=== PATIENT | male | born 1960 | race Caucasian/White ===

== ENCOUNTER → 2016-06-28 | Outpatient (CLI) | payer BC ==
[~2016-06-28] MED LIST: ASPEC81 PO; FAMO20TA11 PO; ZCRUNK
--- NOTE | 2016-06-28 08:43 | DIAGNOSTIC IMAGING REPORT ---
LEFT SHOULDER 4 VIEWS CLINICAL HISTORY: Left shoulder pain. FINDINGS: 4 views of the left shoulder are compared to study dated 05/08/2008. The skeletal structures are well mineralized. No fracture or dislocation is seen. Mild productive change is seen at the acromioclavicular joint. The glenohumeral articulation is preserved. The overlying soft tissues are within normal limits. The imaged left upper lobe lung parenchyma appears clear. IMPRESSION: No acute bony abnormality is seen in the left shoulder. Electronically signed by: Tarun Blunt M.D. 06/28/2016 8:42 AM Dictated Date/Time: 06/28/2016 8:40 AM
== END | disposition home or self-care (01) ==
LOC: C.RDSM 11:27
PROVIDERS: ATTEND Physician Assistant
DX: M25.512 Pain in left shoulder (principal)

== ENCOUNTER → 2017-03-24 | Day surgery (SDC) | payer BC ==
[2017-03-20 07:49] VITALS: Ht 177.8 cm; Wt 88.6 kg
[~2017-03-24] VITALS: Ht 177.8 cm; Wt 88.6 kg
[~2017-03-24] MED LIST changes: -ASPEC81 PO; +ASPI81TA28 PO; -FAMO20TA11 PO; +LIDOCAINE HCL 2% 2 ML VIAL (20MG/ML) ONE; +MIDAZOLAM HCL 1 MG/ML 2ML VIAL ONE; +OMEP20CA9 PO; +PROPOFOL IV EMULSION 10 MG/ML 20 ML VIAL IV ONE; +SIMV20TA2 PO; +SODIUM CHLORIDE 0.9% 500ML 500 ML IV ONE; -ZCRUNK
--- NOTE | 2017-03-24 09:54 | Endo History and Physical ---
History & Physical Date of Service: Mar 24, 2017. Chief Complaint: Screening Referring Physician: Steven Santiago History of Present Illness 56 yo CM who presents for screening colonoscopy. Past Surgical History Hx Cardiac Surgery: No Hx Internal Defibrillator: No Hx Pacemaker: No Hx Abdominal Surgery: No Hx of Implantable Prosthesis: No Hx Post-Op Nausea and Vomiting: No Hx Cancer Surgery: No Hx Thoracic Surgery: No Hx Orthopedic: Yes (RT KNEE SCOPE) Hx Urinary Tract Surgery: No Family History None Social History Smoking Status: Never Smoker Hx Substance Use: No Hx Alcohol Use: Yes (OCCASIONAL) Allergies Coded Allergies: No Known Allergies (Unverified , 03/20/17) Current Medications Reported Home Medications Medications Dose Route/Sig Max Daily Dose Days Date Category Aspirin Ec (Aspirin) 81 Mg Tab 81 Mg PO DAILY 03/20/17 Reported Prilosec (Omeprazole) 20 Mg Cap 20 Mg PO Q2D 03/20/17 Reported Zocor (Simvastatin) 20 Mg Tab 20 Mg PO QAM 03/20/17 Reported Vital Signs Weight (Kilograms): 88.64 Height (Feet): 5 Height (Inches): 10 Date Time Temp Pulse Resp B/P (MAP) Pulse Ox O2 Delivery O2 Flow Rate FiO2 03/24/17 09:01 36.6 55 16 126/78 (94) 96 Room Air Physical Exam General Appearance: WD/WN, no apparent distress Respiratory/Chest: Auscultation: breath sounds normal Cardiovascular: Heart Auscultation: RRR Abdomen: Bowel Sounds: normal Inspection & Palpation: soft, non-distended, no tenderness, guarding & rebound Assessment and Plan Assessment: 56 yo CM who presents for screening colonoscopy. Plan: Proceed with colonoscopy.
--- NOTE | 2017-03-24 10:55 | GI REPORT ---
Procedure Date: 03/24/2017 9:38 AM Procedure: Colonoscopy Indications: Screening for colorectal malignant neoplasm Medicines: Monitored Anesthesia Care Complications: No immediate complications. Estimated Blood Loss: Estimated blood loss: none. Procedure: Pre-Anesthesia Assessment: - Prior to the procedure, a History and Physical was performed, and patient medications and allergies were reviewed. The patient's tolerance of previous anesthesia was also reviewed. The risks and benefits of the procedure and the sedation options and risks were discussed with the patient. All questions were answered, and informed consent was obtained. Prior Anticoagulants: The patient has taken aspirin, last dose was 1 day prior to procedure. ASA Grade Assessment: II - A patient with mild systemic disease. After reviewing the risks and benefits, the patient was deemed in satisfactory condition to undergo the procedure. After I obtained informed consent, the scope was passed under direct vision. Throughout the procedure, the patient's blood pressure, pulse, and oxygen saturations were monitored continuously. The scope was introduced through the anus and advanced to the terminal ileum. The colonoscopy was performed without difficulty. The patient tolerated the procedure well. The quality of the bowel preparation was good. The terminal ileum, ileocecal valve, appendiceal orifice, and rectum were photographed. Findings: The perianal and digital rectal examinations were normal. Non-bleeding internal hemorrhoids were found during retroflexion. The hemorrhoids were small. The exam was otherwise without abnormality. Impression: - Non-bleeding internal hemorrhoids. - The examination was otherwise normal. - No specimens collected. Recommendation: - Resume previous diet. - Continue present medications. - Repeat colonoscopy in 10 years for surveillance. - Return to primary care physician as previously scheduled. Aneudy Horne DO 03/24/2017 10:34:57 AM This report has been signed electronically. Note Initiated On: 03/24/2017 9:38 AM I attest to the content of the Intraoperative Record and orders documented therein, exceptions below
--- NOTE | 2017-03-24 11:00 | Anesthesiology Progress Note ---
Anesthesia Post Op Note Date & Time Mar 24, 2017 at 11:00 Vital Signs Pain Intensity: 0 Vital Signs Past 12 Hours Date Time Temp Pulse Resp B/P (MAP) Pulse Ox O2 Delivery O2 Flow Rate FiO2 03/24/17 10:43 51 18 123/64 (83) 98 Room Air 03/24/17 10:28 52 16 111/72 (85) 98 Room Air 03/24/17 09:01 36.6 55 16 126/78 (94) 96 Room Air Notes Mental Status: alert / awake / arousable, participated in evaluation Pt Amnestic to Procedure: Yes Nausea / Vomiting: adequately controlled Pain: adequately controlled Airway Patency, RR, SpO2: stable & adequate BP & HR: stable & adequate Hydration State: stable & adequate Anesthetic Complications: no major complications apparent
--- NOTE | 2017-03-24 11:02 | Discharge Instructions ---
Endoscopy Patient Instructions Date / Procedure(s) Performed Mar 24, 2017. Colonoscopy Allergy Information Coded Allergies: No Known Allergies (Unverified , 03/20/17) Discharge Date / Findings Mar 24, 2017. Internal hemorrhoids Medication Instructions OK to resume all medications today as prescribed Reported Home Medications Medications Dose Route/Sig Max Daily Dose Days Date Category Aspirin Ec (Aspirin) 81 Mg Tab 81 Mg PO DAILY 03/20/17 Reported Prilosec (Omeprazole) 20 Mg Cap 20 Mg PO Q2D 03/20/17 Reported Zocor (Simvastatin) 20 Mg Tab 20 Mg PO QAM 03/20/17 Reported Provider Instructions Activity Restrictions - No exercising or heavy lifting for 24 hours. - Do not drink alcohol the day of the procedure. - Do not drive a car or operate machinery until the day after the procedure. - Do not make any important decisions or sign important papers in 24 hours after the procedure. Following Day: - Return to full activity which may include returning to work/school. Diet Start your diet with liquids and light foods (jello, soup, juice, toast). Then eat your usual diet if not nauseated. Treatment For Common After Affects For mild abdominal pain, bloating, or excessive gas: - Rest - Eat lightly - Lie on right side Follow-Up Information Follow-up with Stveen Santiago as scheduled Anesthesia Information What You Should Know You have had a procedure that required some medicine to reduce anxiety and discomfort. This treatment is called moderate sedation. After receiving the treatment, you may be sleepy, but you will be able to breathe on your own. The effects of the treatment may last for several hours. Follow these instructions along with Activity/Diet recommendations noted above: * Do NOT do anything where dizziness or clumsiness would be dangerous. * Rest quietly at home today, then you can be up and about tomorrow. * Have a responsible person stay with you the rest of today. * You may have had an I.V. today. If so, you may take the dressing off later today. Recommendations Call your doctor if: * Trouble breathing * Continuous vomiting for more than 24 hours * Temperature above 101 degrees * Severe abdominal pain or bloating * Pain not relieved by pain medicine ordered * There is increased drainage or redness from any incision * A large amount of rectal bleeding greater than 2-3 tablespoons. (If you had a polyp/s removed or have hemorrhoids, a small amount of blood - from the rectum is to be expected.) * You have any unanswered questions or concerns. IN THE EVENT OF A SERIOUS EMERGENCY, GO TO THE NEAREST EMERGENCY ROOM Your discharge instructions were prepared by provider Aneudy Horne. Patient Instructions Signature Page Lee Sutton Patient (or Guardian) Signature/Date: I have read and understand the instructions given to me by my caregivers. Caregiver/RN/Doctor Signature/Date: The above-named patient and/or guardian has received patient instructions on this date. + Original Patient Signature Page (only) stays with chart. Please make copy for patient.
[2017-03-24 11:05] VITALS: BP 136/72; PULSE 51; O2SAT 98
== END | disposition home or self-care (01) ==
LOC: C.GI 08:42
PROVIDERS: ATTEND Internal Medicine
DX: Z12.11 Encounter for screening for malignant neoplasm of colon (principal); K64.8 Other hemorrhoids; Z79.82 Long term (current) use of aspirin; Z79.899 Other long term (current) drug therapy; K21.9 Gastro-esophageal reflux disease without esophagitis; M19.90 Unspecified osteoarthritis, unspecified site

== ENCOUNTER 2023-10-17 06:18 | Observation (INO) ==
--- NOTE | 2023-09-07 10:10 | PAT Medication Instructions ---
Medication Instructions Date of Service September 07, 2023 Home Medications Medication Instructions Recorded turmeric root extract 500 mg 1,000 mg (2 x 500 mg) PO DAILY #30 07/27/21 capsule caps triamcinolone acetonide 0.1 % 1 applic topical BID #30 grams 08/03/22 topical cream simvastatin 40 mg tablet 40 mg PO DAILY #90 tabs 01/30/23 hydrocortisone 2.5 % topical cream 1 applic SC DAILY PRN hemorrhoids 07/24/23 with perineal applicator #30 grams (Anusol-HC) methocarbamol 500 mg tablet 500 mg PO Q8H PRN muscle pain #14 08/25/23 tabs Medication List: glucosamine sulf dipot chlr,msm,chond 550 mg-C 30 mg-kathy 1 mg capsule (Glucosamine Chondroitin) 1 cap PO BID turmeric root extract 500 mg capsule 1,000 mg (2 x 500 mg) PO DAILY triamcinolone acetonide 0.1 % topical cream 1 applic topical BID simvastatin 40 mg tablet 40 mg PO DAILY ascorbate calcium (vitamin C) 1 tab PO Q2D cholecalciferol (vitamin D3) 125 mcg (5,000 unit) capsule 125 mcg PO DAILY hydrocortisone 2.5 % topical cream with perineal applicator (Anusol-HC) 1 applic SC DAILY PRN hemorrhoids mecobalamin (vitamin B12) 500 mcg chewable tablet 500 mcg PO DAILY pantoprazole 40 mg tablet,delayed release 40 mg PO DAILY PRN Acid Reflux zinc acetate 50 mg (zinc) capsule 50 mg PO Q2D methocarbamol 500 mg tablet 500 mg PO Q8H PRN muscle pain MEDICATION INSTRUCTIONS: Continue as directed triamcinolone acetonide 0.1 % topical cream 1 applic topical BID (do not use near surgical area after bathing prior to surgery) hydrocortisone 2.5 % topical cream with perineal applicator (Anusol-HC) 1 applic SC DAILY PRN hemorrhoids STOP taking 2 weeks before surgery glucosamine sulf dipot chlr,msm,chond 550 mg-C 30 mg-kathy 1 mg capsule (Glucosamine Chondroitin) 1 cap PO BID turmeric root extract 500 mg capsule 1,000 mg (2 x 500 mg) PO DAILY DO NOT take the morning of surgery zinc acetate 50 mg (zinc) capsule 50 mg PO Q2D ascorbate calcium (vitamin C) 1 tab PO Q2D cholecalciferol (vitamin D3) 125 mcg (5,000 unit) capsule 125 mcg PO DAILY mecobalamin (vitamin B12) 500 mcg chewable tablet 500 mcg PO DAILY Take morning of surgery With a small sip of water, OTHERWISE NOTHING TO EAT OR DRINK AFTER MIDNIGHT: simvastatin 40 mg tablet 40 mg PO DAILY pantoprazole 40 mg tablet,delayed release 40 mg PO DAILY PRN Acid Reflux methocarbamol 500 mg tablet 500 mg PO Q8H PRN muscle pain Take evening before surgery methocarbamol 500 mg tablet 500 mg PO Q8H PRN muscle pain Other Notes If you have any questions please call us at [phone] or [phone] or [phone] or [phone]
--- NOTE | 2023-09-18 11:51 | Anesthesiology Consultation ---
Date of Service September 18, 2023 History Surgery Operation Date: 10/17/23 07:00 Proposed Procedures p Left Unicompartmental Knee versus - Kenneth Rodriguez MD s Left Total Knee Arthroplasty - Kenneth Rodriguez MD Height/Weight Height: 5 ft 10 in Weight: 90.718 kg Allergies Allergy/AdvReac Type Severity Reaction Status Date / Time No Known Allergies Allergy Verified 08/30/23 13:32 Medications Home Medications Medication Instructions Recorded Confirmed Last Taken glucosamine sulf dipot 1 cap PO BID 11/21/18 08/30/23 11/21/18 chlr,msm,chond 550 mg-C 30 mg-kathy 1 mg capsule (Glucosamine Chondroitin) turmeric root extract 500 mg 1,000 mg (2 x 500 mg) PO DAILY #30 07/27/21 08/30/23 Unknown capsule caps triamcinolone acetonide 0.1 % 1 applic topical BID #30 grams 08/03/22 08/30/23 Unknown topical cream simvastatin 40 mg tablet 40 mg PO DAILY #90 tabs 01/30/23 08/30/23 Unknown ascorbate calcium (vitamin C) 1 tab PO Q2D 07/24/23 08/30/23 Unknown cholecalciferol (vitamin D3) 125 125 mcg PO DAILY 07/24/23 08/30/23 Unknown mcg (5,000 unit) capsule hydrocortisone 2.5 % topical cream 1 applic IN DAILY PRN hemorrhoids 07/24/23 08/30/23 Unknown with perineal applicator #30 grams (Anusol-HC) mecobalamin (vitamin B12) 500 mcg 500 mcg PO DAILY 07/24/23 08/30/23 Unknown chewable tablet pantoprazole 40 mg tablet,delayed 40 mg PO DAILY PRN Acid Reflux 07/24/23 08/30/23 Unknown release zinc acetate 50 mg (zinc) capsule 50 mg PO Q2D 07/24/23 08/30/23 Unknown methocarbamol 500 mg tablet 500 mg PO Q8H PRN muscle pain #14 08/25/23 08/30/23 Unknown tabs Wheeled Walker #1 ea 09/18/23 09/18/23 Unknown Past Medical History Medical History GERD (gastroesophageal reflux disease) Medial meniscus tear Left knee DJD Insomnia Mitral valve regurgitation Prediabetes Anxiety History of stress fracture Internal hemorrhoids Hyperlipidemia Past Family History Family History Brother Carotid artery stenosis Coronary arteriosclerosis Myocardial infarction Father Carotid artery stenosis Lung cancer Coronary arteriosclerosis Sister Hyperlipidemia Mother Stroke Denies family history of Ovarian cancer Prostate cancer Breast cancer Colorectal cancer Past Surgical History Surgical History History of colonoscopy S/P tonsillectomy S/P arthroscopy of right knee Social History Smoking Status: Never smoker Do You Dip or Chew Tobacco: No Hx Alcohol Use: Yes (2 drinks about 2-3 times a week) Alcohol type: beer and hard liquor Hx Substance Use: No substance use type: does not use Review of Systems Patient denies chest pain, shortness of breath, dyspnea on exertion, fever, chills, cough, wheezing, palpitations.
--- NOTE | 2023-09-18 11:54 | Anesthesiology Consultation ---
Date of Service September 18, 2023 Assessment & Plan (1) Pre-op evaluation: - Outpatient joint assessment: Patient is currently scheduled for inpatient pathway. If re-evaluated and patient/surgeon requests outpatient pathway, patient is acceptable candidate for outpatient joint program from anesthesia standpoint pending surgeon's office assessment of pt motivation/support/completion of same day joint program preop requirements. Chart Review Chart Review: Acceptable Risk for Surgery and Patient seen in Pre Admission Testing Teaching & Discussion Pre-Anesthesia Teaching/Discussion Notes: Instructed NPO after midnight before surgery, except medications with 15 cc of water. Medication instructions provided according to the PAT guidelines. History Surgery Operation Date: 10/17/23 07:00 Proposed Procedures p Left Unicompartmental Knee versus - Kenneth Rodriguez MD s Left Total Knee Arthroplasty - Kenneth Rodriguez MD Height/Weight Height: 5 ft 10 in Weight: 93.6 kg Allergies Allergy/AdvReac Type Severity Reaction Status Date / Time No Known Allergies Allergy Verified 08/30/23 13:32 Medications Home Medications Medication Instructions Recorded Confirmed Last Taken glucosamine sulf dipot 1 cap PO BID 11/21/18 08/30/23 11/21/18 chlr,msm,chond 550 mg-C 30 mg-kathy 1 mg capsule (Glucosamine Chondroitin) turmeric root extract 500 mg 1,000 mg (2 x 500 mg) PO DAILY #30 07/27/21 08/30/23 Unknown capsule caps triamcinolone acetonide 0.1 % 1 applic topical BID #30 grams 08/03/22 08/30/23 Unknown topical cream simvastatin 40 mg tablet 40 mg PO DAILY #90 tabs 01/30/23 08/30/23 Unknown ascorbate calcium (vitamin C) 1 tab PO Q2D 07/24/23 08/30/23 Unknown cholecalciferol (vitamin D3) 125 125 mcg PO DAILY 07/24/23 08/30/23 Unknown mcg (5,000 unit) capsule hydrocortisone 2.5 % topical cream 1 applic AL DAILY PRN hemorrhoids 07/24/23 08/30/23 Unknown with perineal applicator #30 grams (Anusol-HC) mecobalamin (vitamin B12) 500 mcg 500 mcg PO DAILY 07/24/23 08/30/23 Unknown chewable tablet pantoprazole 40 mg tablet,delayed 40 mg PO DAILY PRN Acid Reflux 07/24/23 08/30/23 Unknown release zinc acetate 50 mg (zinc) capsule 50 mg PO Q2D 07/24/23 08/30/23 Unknown methocarbamol 500 mg tablet 500 mg PO Q8H PRN muscle pain #14 08/25/23 08/30/23 Unknown tabs Wheeled Walker #1 ea 09/18/23 09/18/23 Unknown Past Medical History Medical History Anxiety GERD (gastroesophageal reflux disease) controlled, stable per pt History of stress fracture (~2015) left foot Hyperlipidemia Internal hemorrhoids Hx Left knee DJD Medial meniscus tear Mitral valve regurgitation Stress echo 07/2023: Mild to moderate MR Prediabetes "borderline" Patient denies h/o stroke, seizures, heart attack, heart failure, HTN, blood clots/DVTs or blood transfusions. Exercise / Class Metabolic Activity II 4-5 Yardwork/Stairs/Walk up hill (denies chest discomfort or shortness of breath with one flight of stairs) Past Family History Family History Brother Carotid artery stenosis Coronary arteriosclerosis Myocardial infarction Father Carotid artery stenosis Lung cancer Coronary arteriosclerosis Sister Hyperlipidemia Mother Stroke Denies family history of Ovarian cancer Prostate cancer Breast cancer Colorectal cancer Past Surgical History Surgical History History of colonoscopy S/P arthroscopy of right knee S/P tonsillectomy Past Anesthesia History No Hx of Anesthesia Complications and No Family Hx of Anesthesia Complications History of PONV No Hx of PONV and No Hx of Motion Sickness Social History Smoking Status: Never smoker Do You Dip or Chew Tobacco: No Hx Alcohol Use: Yes (2 drinks about 2-3 times a week) Alcohol type: beer and hard liquor Hx Substance Use: No substance use type: does not use Review of Systems Snoring, denies witnessed apneas. Patient denies chest pain, shortness of breath, dyspnea on exertion, fever, chills, cough, wheezing, or palpitations. Physical Exam Vital Signs Vitals BP 130/69 P 50 TEMP 97.8 SP02 96% on RA RESP 17 Physical Patient resting comfortably in chair in no acute distress, alert and oriented, responding appropriately throughout visit Full cervical extension range of motion without pain TMD 3.5 finger breadths Mallampati Score 2 Dentition: several crowns, denies chipped or loose teeth, implants or bridges Lungs: normal respiratory effort. Good air movement, clear throughout to auscultation, no adventitious breath sounds Cardiac: regular rate and rhythm, no murmurs noted Carotid arteries: negative bruit bilat Lab Results Anesthesia Preop Results Results Anesthesia Widget: WBC 4.44 K/ul (4.8-10.8) L 08/25/23 Hgb 15.9 g/dl (14.0-18.0) 08/25/23 Hct 45.6 % (42.0-52.0) 08/25/23 Plt 211 K/uL (130-400) 08/25/23 Na 138 mmol/L (136-145) 08/25/23 K 4.5 mmol/L (3.5-5.1) 08/25/23 Cl 106 mmol/L (98-107) 08/25/23 CO2 24 mmol/L (21-32) 08/25/23 BUN 20 mg/dl (6-23) 08/25/23 Creat 1.03 mg/dl (0.6-1.4) 08/25/23 Glucose Level 111 mg/dl (70-99(Fasting)) H 08/25/23 PT 10.9 Seconds (9.0-12.0) 09/18/23 PTT 31 Seconds (21-31) 09/18/23 INR 1.0 (0.9-1.1) 09/18/23 TSH 2.283 uIu/ml (0.300-4.500) 08/07/23 HA1c 5.9 % (4.5-5.6) H 08/07/23 Urine Color Yellow 08/25/23 Urine Appearance Clear (Clear) 08/25/23 Urine pH 5.5 (4.5-7.5) 08/25/23 Urine Specific Warner 1.019 (1.000-1.030) 08/25/23 Urine Protein Negative (Negative) 08/25/23 Urine Glucose (UA) Negative (Negative) 08/25/23 Urine Ketones Negative (Negative) 08/25/23 Urine Blood Negative (Negative) 08/25/23 Urine Nitrite Negative (Negative) 08/25/23 Urine Bilirubin Negative (Negative) 08/25/23 Urine Urobilinogen Negative (Negative) 08/25/23 Urine Leukocyte Esterase Negative (Negative) 08/25/23 Blood Type A Positive 09/18/23 Antibody Screen NEGATIVE 09/18/23 Testing Electrocardiogram Date: 09/18/23 Sinus bradycardia, rate 51 bpm Chest X-Ray Date: 09/18/23 No acute chest disease. Stress Test Date: 07/27/23 MPHR 85% Negative exercise stress echo and ECG EF 65-70% No evidence of LV wall motion abnormalities Mild to moderate mitral regurgitation Other Testing Carotid doppler 11/19/19 No hemodynamically significant stenosis seen within the carotid arteries.
--- NOTE | 2023-10-15 17:13 | History & Physical Report ---
Date of Service October 15, 2023 Assessment & Plan (1) Left knee DJD: 63-year-old male with a history of right knee arthroscopy in the past with bilateral medial compartment knee arthritis left side more symptomatic than the right. He is got significant bone marrow changes in the knee and beyond the point where knee arthroscopy is going to help him. He is failed conservative treatment. His pain is localized medial side of the knee. Plan: We talked about treatment plans including possible partial versus full knee replacement. Orgran proceed with a partial knee replacement. If we get in there it is too bad we will do a full knee replacement. The risks Mente this procedure explained. He understands and desires to proceed. Informed consent was obtained. Will plan on DVT prophylaxis including thigh-high teds, SCDs, aspirin twice a day. He is planned to be discharged home using [facility]. (2) Medial meniscus tear: History of Present Illness Chief Complaint: . Persistent left medial knee pain and discomfort. Primary Care Provider: Steven Santiago MD . Patient is a 63-year-old gentleman who presents for follow-up and treatment of his left medial knee pain. He has a history of left knee pain discomfort describes gotten worse over the past year to year and a half. Has been followed by Dr. Galloway. He has been through extensive conservative treatment clued oral medicines. Pain is all medial. It is persistent. It is affecting his quality life. He like to have his left knee fixed. Of note, he also has a history of a right knee arthroscopy in the past and some medial knee pain on that side but is not as bad. Allergies Allergy/AdvReac Type Severity Reaction Status Date / Time No Known Allergies Allergy Verified 08/30/23 13:32 Home Medications Medication Instructions Recorded Confirmed Type glucosamine sulf dipot 1 cap PO BID 11/21/18 08/30/23 History chlr,msm,chond 550 mg-C 30 mg-kathy 1 mg capsule (Glucosamine Chondroitin) turmeric root extract 500 mg 1,000 mg (2 x 500 mg) PO DAILY #30 07/27/21 08/30/23 Rx capsule caps triamcinolone acetonide 0.1 % 1 applic topical BID #30 grams 08/03/22 08/30/23 Rx topical cream simvastatin 40 mg tablet 40 mg PO DAILY #90 tabs 01/30/23 08/30/23 Rx ascorbate calcium (vitamin C) 1 tab PO Q2D 07/24/23 08/30/23 History cholecalciferol (vitamin D3) 125 125 mcg PO DAILY 07/24/23 08/30/23 History mcg (5,000 unit) capsule hydrocortisone 2.5 % topical cream 1 applic [place] DAILY PRN hemorrhoids 07/24/23 08/30/23 Rx with perineal applicator #30 grams (Anusol-HC) mecobalamin (vitamin B12) 500 mcg 500 mcg PO DAILY 07/24/23 08/30/23 History chewable tablet pantoprazole 40 mg tablet,delayed 40 mg PO DAILY PRN Acid Reflux 07/24/23 08/30/23 History release zinc acetate 50 mg (zinc) capsule 50 mg PO Q2D 07/24/23 08/30/23 History methocarbamol 500 mg tablet 500 mg PO Q8H PRN muscle pain #14 08/25/23 08/30/23 Rx tabs Wheeled Walker #1 ea 09/18/23 09/18/23 Rx Wheeled Walker #1 ea 10/03/23 Rx acetaminophen 500 mg tablet 1,000 mg (2 x 500 mg) PO TID pain 10/15/23 Rx (Tylenol Extra Strength) 30 days #180 tabs aspirin 81 mg tablet,delayed 81 mg PO BID 45 days #90 tabs 10/15/23 Rx release (Campbell Low Dose Aspirin) ketorolac 10 mg tablet 10 mg PO Q6 pain 5 days #20 tabs 10/15/23 Rx ondansetron 4 mg disintegrating 4 mg PO Q8 PRN nausea #20 tabs 10/15/23 Rx tablet oxycodone 5 mg tablet 5 - 10 mg (1 - 2 x 5 mg) PO Q6 PRN 10/15/23 Rx pain #40 tabs sennosides 8.6 mg tablet (Senokot) 8.6 mg PO BID prevent constipation 10/15/23 Rx 14 days #28 tabs tamsulosin 0.4 mg capsule (Flomax) 0.4 mg PO DAILY #7 caps 10/15/23 Rx Past Med/Surg History Problem List Medical History GERD (gastroesophageal reflux disease) controlled, stable per pt Medial meniscus tear Left knee DJD Mitral valve regurgitation Stress echo 07/2023: Mild to moderate MR Prediabetes "borderline" Anxiety History of stress fracture (~2016) left foot Internal hemorrhoids Hx Hyperlipidemia Surgical History History of colonoscopy S/P tonsillectomy S/P arthroscopy of right knee Family History Brother Carotid artery stenosis Coronary arteriosclerosis Myocardial infarction Father Carotid artery stenosis Lung cancer Coronary arteriosclerosis Sister Hyperlipidemia Mother Stroke Denies family history of Ovarian cancer Prostate cancer Breast cancer Colorectal cancer Social History Smoking Status: Never smoker Second Hand Exposure: No; Do You Dip or Chew Tobacco: No; Tobacco Cessation Education Requested by Patient: No Hx Alcohol Use: Yes (2 drinks about 2-3 times a week) Alcohol type: beer and hard liquor Alcohol Intake Frequency: 2-3 x/Week Hx Substance Use: No Preferred Language: Kazakh Communication Ability: Effective Visual Impairment: No Limitations Hearing Ability: Normal Dispensing Audiologist Required: No Beliefs That Will Affect Care: None Current Living Situation: Spouse current occupational status: employed Other Information That Helps Us Care for You: No Feels Safe at Home: Yes Safety Concerns: Feels Safe At This Time Seatbelt Use: always Assistive Devices: None Review of Systems All systems reviewed & are unremarkable except as noted in HPI & below. Physical Exam . Physical examination was a pleasant 63-year-old male. Examination of the left knee reveals patient ambulates independently. Good varus alignment to his left knee. He is tender with medial joint line. Small knee effusion. Range of motion 0-125. No instability. No particular pain with hip motion. Constitutional WD/WN, vitals as above Respiratory normal respiratory effort, lungs clear to auscultation Cardiovascular RRR, no murmur, no edema Gastrointestinal (Abdomen) normal bowel sounds, soft, nontender, no hepatosplenomegaly Results & Data Results & Data Laboratory Results . Diagnostic Findings . X-rays of the left knee from April of this year were reviewed. Shows advanced medial compartment arthritis. Got near complete loss of medial joint space. The rest knee looks pretty good. He is Pretty similar findings in his right knee as well. MRI was reviewed. It shows a degenerative medial meniscus tear with some bone marrow edema of the medial femoral condyle medial tibial plateau. The rest knee looks pretty good. PG Care Time/CCT Total # of Minutes Spent Total Time Spent with Patient: Total time spent is greater than 50% in coordination of care (as documented) at patient's floor/unit and/or counseling patient: Coding Level of Care Code None Diagnoses Left knee DJD M17.12 Medial meniscus tear S83.249A
[~2023-10-17 06:18] MED LIST changes: -ASPI81TA28 PO; -LIDOCAINE HCL 2% 2 ML VIAL (20MG/ML) ONE; -MIDAZOLAM HCL 1 MG/ML 2ML VIAL ONE; -OMEP20CA9 PO; -PROPOFOL IV EMULSION 10 MG/ML 20 ML VIAL IV ONE; -SIMV20TA2 PO; -SODIUM CHLORIDE 0.9% 500ML 500 ML IV ONE; +TRANEXAMIC ACID 1,000 MG **IV Pre-op IV SCH
[2023-10-17] MEDS ORDERED: BUPIVACAINE 0.5 % 5 MG/1 ML PF 10ML VIAL ONE (06:30)
[2023-10-17] MEDS ORDERED: ROPIVACAINE 0.5% 5 MG/ML 30 ML VIAL ONE (06:30)
[2023-10-17] MEDS ORDERED: EPINEPHrine INJ 1 MG/ML AMP ONE (06:30)
--- NOTE | 2023-10-17 06:41 | History & Physical Bridge Note ---
Date of Service October 17, 2023 History & Physical Bridge Note I have examined the patient, reviewed the History & Physical and in the interval since the performance of the History & Physical I have noted the following changes of clinical significance: no changes noted
[2023-10-17] MEDS: CeleBREX 200 MG CAP PO SCH (06:53)
[2023-10-17] MEDS: FAMOTIDINE 20 MG TAB PO SCH (06:53)
[2023-10-17] MEDS: LR 500ML BOLUS, THEN 15ML/HR IV SCH (06:53)
[2023-10-17] MEDS: METOCLOPRAMIDE HCL 10 MG TABLET PO SCH (06:53)
[2023-10-17] MEDS: ACETAMINOPHEN 500 MG TAB PO SCH ×2 (06:53→15:09)
[2023-10-17] MEDS: LR 60ML/HR IV SCH (06:54)
[2023-10-17] MEDS ORDERED: fentaNYL citrate PF 100 MCG/2 ML VIAL ONE (07:11)
[2023-10-17] MEDS ORDERED: MIDAZOLAM HCL 1 MG/ML 2ML VIAL ONE (07:11)
[2023-10-17] MEDS ORDERED: PROPOFOL IV EMULSION 10 MG/ML 20 ML VIAL IV ONE ×3 (07:11→12:23)
[2023-10-17] MEDS: ceFAZolin 2000MG 2,000 MG/15 ML SYR IV SCH ×2 (11:40→19:30)
[2023-10-17] MEDS: ROPIV 0.5% 246mg, Ketorolac 30mg, EPINEPHrine 0.5mg in NSS INFIL SCH (12:08)
[2023-10-17] MEDS: ORTHO JOINT ANESTHETIC ONE (12:08)
[2023-10-17] MEDS: TRANEXAMIC ACID 1,000 MG **IV Intra-op IV SCH (12:24)
--- NOTE | 2023-10-17 13:14 | Operative Report ---
PG Post Operative Report Pre & Post Diagnosis Operation Date: 10/17/23 08:40 Pre-Op Diagnosis: Left knee medial Compartment Degenerative Joint Disease Post-Op Diagnosis: Left knee medial Compartment Degenerative Joint Disease I identified the patient and participated in the time-out.: Yes Procedure Operation Date: 10/17/23 08:40 Actual Procedures p Left Unicompartmental Knee Arthroplasty(Left) - Kenneth Rodriguez MD Surgeon Kenneth Rodriguez MD Human Resources Department Supervisor Osmin Vincent PA-C Estimated Blood Loss 50 Findings Consistent with Post-Op Diagnosis Operative findings revealed grade 4 [id number] disease of the medial femoral condyle medial tibial plateau. There was notable eburnation but full-thickness cartilage loss. He had some mild degenerative changes in the patellofemoral joint. The lateral compartment was pristine. Specimens Left knee sent for pathology. Anesthesia Type Spinal MAC Complications none Disposition Accompanied Patient To Recovery: No Indications Patient is 63-year-old gentleman has had a several year history of progressive increasing the left medial knee pain discomfort. He has been through extensive conservative treatment which became less successful over time. X-rays revealed some moderate medial compartment arthritis. He had an MRI which showed a significant bone marrow edema medial femoral condyle medial tibial plateau as well as a degenerative medial meniscus tear. His symptoms are localized to the medial side of the knee. He elected proceed with partial knee replacement. Description of Procedure Operative implants consist of: 1 Biomet [place] medium distal femoral component. 2. Biomet [place] left medial size C tibial tray. 3. 4 mm mobile-bearing polyethylene insert. The patient was taken the operating, identified, placed on the operating table in the supine position. All contact areas were appropriately padded. IV antibiotic 5 by anesthesia team. Spinal anesthetic and abductor canal block had provided in the holding area. A lateral left thigh turn was then placed. Left lower extremity was then prepped and draped in usual sterile fashion. The left leg was elevated exsanguinated with use of an Esmarch and a turn was placed at 300 mmHg. An anterior approach the left knee was then performed to longitudinal incision centered over the patella. Sharp dissection carried through subcutaneous tissue down the extensor mechanism. A medial parapatellar throbby incision was made. Some subperiosteal dissection was carried out medially. The fat pad was resected from Neath patella tendon. I then examined the knee. The lateral compartment was fairly pristine. His ACL was intact. He had some mild degenerative changes in the patellofemoral joint. The we elected proceed with a partial knee replacement. The femur was then sized to a size medium. The medium spoon was placed. It was attached to the external tibial alignment jig with a 4G clamp. The tibial jig was pinned in place. The proximal tibial cut was made. The tibia sized to a size C. The 4 feeler gauge was placed and fit appropriately. The IM canal was then opened. An intramedullary terrell was then placed. This was attached to the femoral template. The holes were drilled for the femoral component. The posterior cutting guide was placed and the posterior cut was made. The medial meniscus was excised. The femur was then milled with the 0 spigot. Femoral component was placed. The tibial tray was placed. The 4 feeler gauge fit well and flexion and the 1 in extension. The 3 spigot was then used and distal femur is milled. We trialed the knee and the 4 feeler gauge fit appropriately. We then prepared the distal femur with the posterior cutting guide and the anterior leaf cut. The cement drill was used to create holes for the femoral component. The tibial tray was pinned in place. The toothbrush blade was used to create the trough for the keel of the tibial tray. We then trialed the knee and the 4 insert fit appropriately. We elect to place these implants. Nupathe all trial implants were removed. A single batch [place] G cement was mixed. A left medial size C tibial tray was cemented in place followed by a medium femoral component. The 4 feeler gauge was placed in the knee was brought out into 30 degrees short of full extension. Once the cement hardened final trial was performed and the 4 implant fit appropriately. The permanent for implant was placed. The knee was irrigated. I did inject locally with a total of 100 cc of Ortho mix. The wound was once again irrigated. The tourniquet was let down for final tourniquet time of 54 minutes. Hemostasis assured use electrocautery. Extensor Meclomen closed with #1 Vicryl suture in a [id number] fashion for the subcutaneous tissue then closed with 2 Dexon suture in a buried interrupted fashion skin was closed with skin mathew. Leg was then cleaned and dried and a sterile dressing with Xeroform, 4 fours, sterile cast padding, Jacob bandage were applied. The patient then transferred to the recovery room in stable condition. The patient tolerated the procedure well and there were no complications. Osmin Vincent, my physician assistant store manager operations, was present for the entire procedure. His assistance was essential and required for appropriate patient positioning, prepping and draping, surgical exposure, performing the technical details of the operation, placement the implants, closure of the wound, and placement of the sterile bandage. I attest to the content of the Intraoperative Record and any orders documented therein. Any exceptions are noted below.
--- NOTE | 2023-10-17 13:50 | XRay Report ---
TWO VIEWS LEFT KNEE CLINICAL HISTORY: Postoperative examination. FINDINGS: AP and crosstable lateral portable views of the left knee are obtained. A hemiarthroplasty of the medial compartment of the left knee is in near anatomic alignment. No acute fracture is seen. There are expected postoperative changes around the knee including skin clips, soft tissue edema, an d subcutaneous gas. IMPRESSION: Expected postoperative changes status post left knee hemiarthroplasty. No acute fracture is seen. ACT 112: Negative or not required by law. Electronically signed by: Tarun Blunt M.D. 10/17/2023 1:48 PM
[2023-10-17] MEDS ORDERED: METHOCARBAMOL 500 MG TABLET PO PRN (14:58)
[2023-10-17] MEDS ORDERED: HYDROmorphone INJ 0.5 MG/0.5 ML SYR IV PRN (14:58)
[2023-10-17] MEDS ORDERED: ALUMINUM/MAGNESIUM SUSP 30 ML UDC PO PRN (14:58)
[2023-10-17] MEDS ORDERED: ONDANSETRON INJ 2 MG/ML 2 ML VIAL IV PRN (14:58)
[2023-10-17] MEDS ORDERED: PANTOprazole 40 MG TAB PO PRN (14:58)
[2023-10-17] MEDS ORDERED: GLUCOSE 10 TAB/TUBE PO PRN (14:58)
[2023-10-17] MEDS ORDERED: MAGNESIUM HYDROXIDE SUSP 30 ML UDC PO PRN (14:58)
[2023-10-17] MEDS ORDERED: bisacodyL 10 MG SUPP PR PRN (14:58)
[2023-10-17] MEDS ORDERED: DEXTROSE 50% 50 ML SYRINGE IV PRN (14:58)
[2023-10-17] MEDS ORDERED: GLUCOSE 40% GEL 15 GM TUBE PO PRN (14:58)
[2023-10-17] MEDS ORDERED: CARBOHYDRATES FOR HYPOGLYCEMIA PO PRN (14:58)
[2023-10-17] MEDS ORDERED: GLUCAGON FOR INJ 1 MG VIAL SQ PRN (14:58)
[2023-10-17] MEDS ORDERED: METOCLOPRAMIDE HCL INJ 5 MG/ML 2 ML VIAL IV PRN (14:58)
[2023-10-17] MEDS ORDERED: NALOXONE HCL 0.4 MG/1 ML VIAL/CARP IV PRN (14:58)
[2023-10-17] MEDS ORDERED: PHARMACY GLYCEMIC MGMT CONSULT PRN (14:58)
--- NOTE | 2023-10-17 14:59 | Anesthesiology Progress Note ---
Date of Service October 17, 2023 Anesthesia Post Procedure Vital Signs Vital Signs: Temp Pulse Pulse Resp BP Pulse Ox O2 Del Method 10/17/23 14:25 36.4 C L 50 L 16 112/56 L 94 Room Air 10/17/23 14:15 50 L 16 106/61 93 Room Air 10/17/23 14:05 50 L 12 116/58 L 94 Room Air 10/17/23 13:55 53 L 18 108/61 93 Room Air 10/17/23 13:45 54 L 12 110/56 L 93 Room Air 10/17/23 13:35 55 L 18 108/54 L 94 Room Air 10/17/23 13:25 58 L 14 120/63 95 Room Air 10/17/23 13:15 65 16 123/56 L 98 Oxymask 10/17/23 13:07 36 C L 69 14 118/58 L 94 Oxymask 10/17/23 06:35 36.9 C 69 18 146/79 H 95 Room Air O2 Flow Rate 10/17/23 14:25 10/17/23 14:15 10/17/23 14:05 10/17/23 13:55 10/17/23 13:45 10/17/23 13:35 10/17/23 13:25 10/17/23 13:15 5 10/17/23 13:07 10 10/17/23 06:35 Transfer of Care Handoff Completed per policy Notes Mental Status: alert / awake / arousable Patient Amnestic to Procedure: Yes Nausea / Vomiting: adequately controlled Pain: adequately controlled Airway Patency, RR, SpO2: stable & adequate BP & HR: stable & adequate Hydration State: stable & adequate Neuraxial Anesthesia: was administered and sensory block is resolving Anesthetic Complications: no major complications apparent
[2023-10-17] MEDS: KETOROLAC 30 MG/ML VIAL IV SCH (15:09)
[2023-10-17] MEDS: SODIUM CHLORIDE 0.9% 1,000 ML IV SCH (15:14)
[2023-10-17] MEDS: ZINC SULFATE 220 MG CAPSULE PO SCH (16:18)
[2023-10-17] MEDS: ASCORBIC ACID 500 MG TAB PO SCH (16:21)
--- NOTE | 2023-10-17 17:15 | Pharmacy Report ---
Pharmacy Glycemic Short Note 2 - Date of Service October 17, 2023 - Glycemic Short BSG Results (Last 24 hours): 10/17/23 10/17/23 10/17/23 16:26 16:27 16:48 POC Glucose 67 L* 58 L* 78 OUTPATIENT ANTIDIABETIC REGIMEN: * N/A ASSESSMENT: * 63 year old male, POD 0 - s/p surgery. Pharmacy consulted for glycemic management. Patient is listed as "pre-diabetes", A1c 5.9% on 07/2023. No home medications listed on med list. * Post op BSGs low 67 mg/dL - on recheck up to 78 mg/dL. Will add on novolog for HS time with correction factor only. No carb coverage is needed at this time. * Patient with steroids starting tomorrow AM, may need to tighten novolog parameters at that time. PLAN FOR INPATIENT GLYCEMIC CONTROL: * Hold outpatient oral diabetes medications * Basal insulin * Lantus - hold * Bolus insulin * NovoLog per scale ACHS or Q6hrs while NPO * Goal Range: Low 110 mg/dL - High 160 mg/dL * Correction Factor: 30 mg/dL/unit * Nutritional / Prandial insulin per carb ratio of 1 unit per -- grams CHO consumed
[2023-10-17] MEDS: TRANEXAMIC ACID / 0.7% NACL 1,000 MG/100 ML BAG IV SCH (19:30)
[2023-10-17] MEDS: SENNA 8.6 MG TAB PO SCH ×2 (20:46→20:47)
[2023-10-17] MEDS: ASPIRIN 81 MG ECTAB PO SCH (20:46)
[2023-10-17] MEDS: DOCUSATE SODIUM 100 MG CAP PO SCH (20:46)
[2023-10-17] MEDS: TRIAMCINOLONE ACET 0.1% CR 15 GM TUBE TOP SCH (20:48)
[2023-10-17] MEDS ORDERED: NON-FORMULARY MEDICATION (Glucos Sul 2kcl-Msm-Chond-C-Mn [Glucosamine Chondroitin] 550-30- PO SCH (21:00)
[2023-10-17] MEDS: INSULIN ASPART PER UNIT CHARGE SC SCH (21:37)
[2023-10-18] MEDS: oxyCODONE HCL IR 5 MG TAB (IMMEDIATE RELEASE) PO PRN (06:27)
--- NOTE | 2023-10-18 07:24 | Orthopedic Progress Note ---
Date of Service October 18, 2023 Assessment & Plan (1) Status post left partial knee replacement: He was seen and examined by Dr. Rodriguez. His labs are pending but blood sugar was improved last night. Has been bradycardic. Continue PT/OT wbat dvt prophylaxis: teds, scd's, aspirin d/c planning: home with home health today if he does well with PT Subjective . 63 year old patient POD #1 from left partial knee replacement. Pain is controlled. He has concerns about his blood sugar and pulse being low. No chest pain. Review of Systems All systems reviewed & are unremarkable except as noted in HPI & below. Physical Exam . alert and oriented. NAD. VSS. He has been slightly bradycardic. Left leg: dressing clean, dry, intact. Able to do straight leg raise. Can dorsiflex and plantarflex. NVI Results & Data Results & Data Laboratory Results . Diagnostic Findings . PG Care Time/CCT Total # of Minutes Spent Total Time Spent with Patient: Total time spent is greater than 50% in coordination of care (as documented) at patient's floor/unit and/or counseling patient: Coding Level of Care Code 92730 Post Operative Follow-Up Diagnoses Status post left partial knee replacement Z96.652
[2023-10-18 07:34] LABS: BUN Creatinine Ratio 24.8 (10-20); Calcium 8.3 mg/dl (8.6-10.3); Creatinine Clr Calc Pharmacy 84.5 ml/min; Est GFR (African American) 90.7 ml/min; Est GFR (Non-African American) 78.2 ml/min; Potassium 4.4 mmol/L (3.5-5.1)
[2023-10-18 07:42] LABS: Hematocrit (blood only) 37.3 % (42.0-52.0); Hemoglobin 12.6 g/dl (14.0-18.0); Mean Corpuscular Hemoglobin 32.2 pg (25.0-34.0); Mean Corpuscular Hgb Conc 33.8 g/dL (32.0-36.0); Mean Corpuscular Volume 95.4 fL (80.0-100.0); Mean Platelet Volume 10.2 fL (9.4-12.4); Platelet Count 184 K/uL (130-400); RDW Coefficient of Variation 11.9 % (11.5-14.5); RDW Standard Deviation 41.8 fL (36.4-46.3); Red Blood Count 3.91 M/uL (4.70-6.10); White Blood Count 7.08 K/ul (4.8-10.8)
[2023-10-18] MEDS: dexAMETHasone 10 MG in SYRINGE 0 ML IV SCH (08:39)
[2023-10-18] MEDS: SIMVASTATIN 40 MG TAB PO SCH (08:48)
[2023-10-18] MEDS: CHOLECALCIFEROL 125 MCG (5,000 UNITS) TAB PO SCH (08:48)
[2023-10-18] MEDS: CYANOCOBALAMIN (B-12) 500 MCG TABLET PO SCH (08:49)
[2023-10-18] MEDS: MULTIVITAMIN TAB PO SCH (08:49)
[2023-10-18] MEDS: TAMSULOSIN HCL 0.4 MG CAP PO SCH (08:49)
== END 2023-10-18 11:23 | disposition home health service (06) ==
LOC: ASU 06:18 → 3E 06:18

== ENCOUNTER 2024-01-17 08:27 | Observation (INO) ==
--- NOTE | 2023-12-18 12:20 | PAT Medication Instructions ---
Medication Instructions Date of Service December 18, 2023 Home Medications Medication Instructions Recorded hydrocortisone 2.5 % topical cream 1 applic [place] DAILY PRN hemorrhoids 07/24/23 with perineal applicator #30 grams (Anusol-HC) Wheeled Walker #1 ea 09/18/23 Wheeled Walker #1 ea 10/03/23 aspirin 81 mg tablet,delayed 81 mg PO BID 45 days #90 tabs 10/15/23 release (Campbell Low Dose Aspirin) ondansetron 4 mg disintegrating 4 mg PO Q8 PRN nausea #20 tabs 10/15/23 tablet Medication List: glucosamine sulf dipot chlr,msm,chond 550 mg-C 30 mg-kathy 1 mg capsule (Glucosamine Chondroitin) 1 cap PO BID hydrocortisone 2.5 % topical cream with perineal applicator (Anusol-HC) 1 applic [place] DAILY PRN hemorrhoids mecobalamin (vitamin B12) 500 mcg chewable tablet 500 mcg PO QAM pantoprazole 40 mg tablet,delayed release 40 mg PO Q2D PRN Acid Reflux aspirin 81 mg tablet,delayed release (Campbell Low Dose Aspirin) 81 mg PO BID ondansetron 4 mg disintegrating tablet 4 mg PO Q8 PRN nausea Zinc 30 mg PO Q2D acetaminophen 500 mg tablet (Tylenol Extra Strength) 1,000 mg PO TID Pain ascorbic acid (vitamin C) 500 mg tablet (Vitamin C) 500 mg PO Q2D cholecalciferol (vitamin D3) 50 mcg (2,000 unit) tablet (Vitamin D3) 50 mcg PO QAM ibuprofen 200 mg-diphenhydramine HCl 25 mg capsule (Ibuprofen PM) 1 cap PO HS omega 5-akx-fbr-fish oil 1,000 mg (120 mg-180 mg) capsule (Fish Oil) 1 cap PO QAM simvastatin 40 mg tablet 40 mg PO QPM triamcinolone acetonide 0.1 % topical cream 1 applic topical BID PRN Rash turmeric root extract 500 mg capsule 1,000 mg PO BID MEDICATION INSTRUCTIONS: Continue as directed hydrocortisone 2.5 % topical cream with perineal applicator (Anusol-HC) 1 applic [place] DAILY PRN hemorrhoids triamcinolone acetonide 0.1 % topical cream 1 applic topical BID PRN Rash (do not apply after bathing prior to surgery) ASK your surgeon for instructions ibuprofen 200 mg-diphenhydramine HCl 25 mg capsule (Ibuprofen PM) 1 cap PO HS ASK your prescriber and surgeon aspirin 81 mg tablet,delayed release (Campbell Low Dose Aspirin) 81 mg PO BID STOP taking 2 weeks before surgery omega 4-lxg-fba-fish oil 1,000 mg (120 mg-180 mg) capsule (Fish Oil) 1 cap PO QAM glucosamine sulf dipot chlr,msm,chond 550 mg-C 30 mg-kathy 1 mg capsule (Glucosamine Chondroitin) 1 cap PO BID turmeric root extract 500 mg capsule 1,000 mg PO BID DO NOT take the morning of surgery ascorbic acid (vitamin C) 500 mg tablet (Vitamin C) 500 mg PO Q2D cholecalciferol (vitamin D3) 50 mcg (2,000 unit) tablet (Vitamin D3) 50 mcg PO QAM Zinc 30 mg PO Q2D mecobalamin (vitamin B12) 500 mcg chewable tablet 500 mcg PO QAM Take morning of surgery With a small sip of water, OTHERWISE NOTHING TO EAT OR DRINK AFTER MIDNIGHT: pantoprazole 40 mg tablet,delayed release 40 mg PO Q2D PRN Acid Reflux ondansetron 4 mg disintegrating tablet 4 mg PO Q8 PRN nausea acetaminophen 500 mg tablet (Tylenol Extra Strength) 1,000 mg PO TID Pain Take evening before surgery simvastatin 40 mg tablet 40 mg PO QPM ondansetron 4 mg disintegrating tablet 4 mg PO Q8 PRN nausea acetaminophen 500 mg tablet (Tylenol Extra Strength) 1,000 mg PO TID Pain Other Notes If you have any questions please call us at [phone] or [phone] or [phone] or [phone]
--- NOTE | 2023-12-25 09:17 | Anesthesiology Consultation ---
Date of Service December 25, 2023 Assessment & Plan (1) Pre-op evaluation: - check BSG am DOS. - h/o anesthesia concerns reported as above in PMHx. I had a detailed discussion with patient regarding these and reviewed records. Patient feels it was likely related to NPO interval when surgery was significantly delayed DOS, he notes does fine with usual NPO range and feels comfortable with plan for typical process. These were discussed in detail with Dr. Song who advised that nothing additional is needed prior to surgery. I relayed this to patient who verbalized understanding and expressed comfort with plan, denied additional questions or concerns. - s/p left partial knee replacement 10/17/23: SAB L3-L4 3 attempts + PNB. Discharge date 10/18/23, summary 10/23/23: "...blood sugar was improved last night. Has been bradycardic...Hemoglobin, hematocrit, and vital signs were mo nitored during his hospital stay and remained stable. Did not require any blood transfusions. There were no complications during his hospital stay..." - Outpatient joint assessment: Patient is currently scheduled for inpatient pathway. If re-evaluated and patient/surgeon requests outpatient pathway, patient is not ideal candidate for outpatient joint program from anesthesia standpoint. Chart Review Chart Review: Acceptable Risk for Surgery and Patient seen in Pre Admission Testing Teaching & Discussion Pre-Anesthesia Teaching/Discussion Notes: Instructed NPO after midnight before surgery, except medications with 15 cc of water. Medication instructions provided according to the PAT guidelines. History Surgery Operation Date: 01/17/24 08:50 Proposed Procedures p Right Total Knee Arthroplasty versus - Kenneth Rodriguez MD s Right Hemiarthroplasty Knee - Kenneth Rodriguez MD Height/Weight Height: 5 ft 10 in Weight: 94.2 kg Allergies Allergy/AdvReac Type Severity Reaction Status Date / Time No Known Allergies Allergy Verified 12/18/23 10:07 Medications Home Medications Medication Instructions Recorded Confirmed Last Taken glucosamine sulf dipot 1 cap PO BID 11/21/18 12/18/23 10/03/23 chlr,msm,chond 550 mg-C 30 mg-kathy 1 mg capsule (Glucosamine Chondroitin) hydrocortisone 2.5 % topical cream 1 applic [place] DAILY PRN hemorrhoids 07/24/23 12/18/23 Unknown with perineal applicator #30 grams (Anusol-HC) mecobalamin (vitamin B12) 500 mcg 500 mcg PO QAM 07/24/23 12/18/23 10/14/23 08:00 chewable tablet pantoprazole 40 mg tablet,delayed 40 mg PO Q2D PRN Acid Reflux 07/24/23 12/18/23 10/15/23 18:00 release Wheeled Walker #1 ea 09/18/23 09/18/23 Unknown Wheeled Walker #1 ea 10/03/23 Unknown aspirin 81 mg tablet,delayed 81 mg PO BID 45 days #90 tabs 10/15/23 12/18/23 Unknown release (Campbell Low Dose Aspirin) Zinc 30 mg PO Q2D 12/18/23 12/18/23 Unknown acetaminophen 500 mg tablet 1,000 mg PO TID Pain 12/18/23 12/18/23 Unknown (Tylenol Extra Strength) ascorbic acid (vitamin C) 500 mg 500 mg PO Q2D 12/18/23 12/18/23 Unknown tablet (Vitamin C) cholecalciferol (vitamin D3) 50 50 mcg PO QAM 12/18/23 12/18/23 Unknown mcg (2,000 unit) tablet (Vitamin D3) ibuprofen 200 mg-diphenhydramine 1 cap PO HS 12/18/23 12/18/23 Unknown HCl 25 mg capsule (Ibuprofen PM) omega 5-fpw-kpd-fish oil 1,000 mg 1 cap PO QAM 12/18/23 12/18/23 Unknown (120 mg-180 mg) capsule (Fish Oil) simvastatin 40 mg tablet 40 mg PO QPM 12/18/23 12/18/23 Unknown triamcinolone acetonide 0.1 % 1 applic topical BID PRN Rash 12/18/23 12/18/23 Unknown topical cream turmeric root extract 500 mg 1,000 mg PO BID 12/18/23 12/18/23 Unknown capsule Past Medical History Medical History Anxiety GERD (gastroesophageal reflux disease) controlled, stable per pt History of adverse reaction to anesthesia "When I had my last surgery (10/2023)- When I woke up I was groggy, low blood pressure, pulse was very low, low blood sugar, and trouble measuring my temperature - I thought it might have been shock." He notes surgery was planned for 7 am and delayed until 1 pm. History of stress fracture (~2015) left foot Hyperlipidemia Internal hemorrhoids Hx Left knee DJD Medial meniscus tear Mitral valve regurgitation Stress echo 07/2023: Mild to moderate MR Prediabetes "borderline" Patient denies h/o stroke, seizures, heart attack, heart failure, blood clots/DVTs or blood transfusions. Exercise / Class Metabolic Activity II 4-5 Yardwork/Stairs/Walk up hill (denies chest discomfort or shortness of breath with one flight of stairs) Past Family History Family History Brother Carotid artery stenosis Coronary arteriosclerosis Myocardial infarction Father Carotid artery stenosis Lung cancer Coronary arteriosclerosis Sister Hyperlipidemia Mother Stroke Denies family history of Ovarian cancer Prostate cancer Breast cancer Colorectal cancer Past Surgical History Surgical History History of arthroplasty of left knee 10/17/2023 History of colonoscopy S/P arthroscopy of right knee S/P tonsillectomy Past Anesthesia History No Family Hx of Anesthesia Complications and Other (see above) History of PONV No Hx of PONV and No Hx of Motion Sickness Social History Smoking Status: Never smoker Do You Dip or Chew Tobacco: No Hx Alcohol Use: Yes Alcohol type: beer and hard liquor alcohol intake frequency: a few times a week Hx Substance Use: No substance use type: does not use Review of Systems Snoring, denies witnessed apneas. Patient denies chest pain, shortness of breath, dyspnea on exertion, fever, chills, cough, wheezing, or palpitations. Physical Exam Vital Signs Vitals BP 151/76 P 53 TEMP 97.8 SP02 97% on RA RESP 18 Physical Patient resting comfortably in chair in no acute distress, alert and oriented, responding appropriately throughout visit Full cervical extension range of motion without pain TMD 3.5 finger breadths Mallampati Score 2 Dentition: one chipped tooth and one crown, denies bloose teeth, caps, implants or bridges Lungs: normal respiratory effort. Good air movement, clear throughout to auscultation, no adventitious breath sounds Cardiac: regular rate and rhythm, no murmurs noted Carotid arteries: negative bruit bilat Lab Results Anesthesia Preop Results Results Anesthesia Widget: WBC 4.30 K/ul (4.8-10.8) L 12/25/23 Hgb 14.3 g/dl (14.0-18.0) 12/25/23 Hct 41.8 % (42.0-52.0) L 12/25/23 Plt 224 K/uL (130-400) 12/25/23 Na 138 mmol/L (136-145) 12/25/23 K 5.1 mmol/L (3.5-5.1) 12/25/23 Cl 105 mmol/L (98-107) 12/25/23 CO2 29 mmol/L (21-32) 12/25/23 BUN 19 mg/dl (6-23) 12/25/23 Creat 1.03 mg/dl (0.6-1.4) 12/25/23 Glucose Level 117 mg/dl (70-99(Fasting)) H 12/25/23 PT 10.9 Seconds (9.0-12.0) 12/25/23 PTT 30 Seconds (21-31) 12/25/23 INR 1.0 (0.9-1.1) 12/25/23 HA1c 5.8 % (4.5-5.6) H 12/25/23 Blood Type A Positive 12/25/23 Antibody Screen NEGATIVE 12/25/23 Testing Electrocardiogram Date: 09/18/23 Sinus bradycardia, rate 51 bpm Chest X-Ray Date: 09/18/23 No acute chest disease. Stress Test Date: 07/27/23 MPHR 85% Negative exercise stress echo and ECG EF 65-70% No evidence of LV wall motion abnormalities Mild to moderate mitral regurgitation Other Testing Carotid doppler 11/19/19 No hemodynamically significant stenosis seen within the carotid arteries.
--- NOTE | 2024-01-13 17:43 | History & Physical Report ---
Date of Service January 13, 2024 Assessment & Plan (1) Right knee DJD: 63-year-old gentleman now 3 months out from a left partial knee replacement with advanced medial compartment arthritis. After the left knee would like to have a similar procedure on the right side. Plan: We are going to take him to the operating do a right partial knee replacement. If we get in there is too bad we will do a full knee replacement. He did well for his other side. The risks and benefits of partial and full knee replacement were explained. He understands. He desires to proceed. He is planning on stay in the hospital overnight and hopefully discharge postoperative day 1. Last time he had some blood pressure and blood glucose issues we will follow this closely. (2) Status post left partial knee replacement: History of Present Illness Chief Complaint: . Persistent right medial knee pain discomfort. Primary Care Provider: Steven Santiago MD . Patient is a 63-year-old gentleman now about 3 months out from a left partial knee replacement. The left knee is doing pretty well. He continues to bothered by right knee pain. Very similar. Still medial sided pain. He limps more on the right side and it is limiting him. He has been through conservative care with minimal recent relief. Happy with the left knee would like to proceed with right partial knee replacement if possible. Allergies Allergy/AdvReac Type Severity Reaction Status Date / Time No Known Allergies Allergy Verified 12/18/23 10:07 Home Medications Medication Instructions Recorded Confirmed Type glucosamine sulf dipot 1 cap PO BID 11/21/18 12/18/23 History chlr,msm,chond 550 mg-C 30 mg-kathy 1 mg capsule (Glucosamine Chondroitin) hydrocortisone 2.5 % topical cream 1 applic [place] DAILY PRN hemorrhoids 07/24/23 12/18/23 Rx with perineal applicator #30 grams (Anusol-HC) mecobalamin (vitamin B12) 500 mcg 500 mcg PO QAM 07/24/23 12/18/23 History chewable tablet pantoprazole 40 mg tablet,delayed 40 mg PO Q2D PRN Acid Reflux 07/24/23 12/18/23 History release Wheeled Walker #1 ea 09/18/23 09/18/23 Rx Wheeled Walker #1 ea 10/03/23 Rx aspirin 81 mg tablet,delayed 81 mg PO BID 45 days #90 tabs 10/15/23 12/18/23 Rx release (Campbell Low Dose Aspirin) Zinc 30 mg PO Q2D 12/18/23 12/18/23 History acetaminophen 500 mg tablet 1,000 mg PO TID Pain 12/18/23 12/18/23 History (Tylenol Extra Strength) ascorbic acid (vitamin C) 500 mg 500 mg PO Q2D 12/18/23 12/18/23 History tablet (Vitamin C) cholecalciferol (vitamin D3) 50 50 mcg PO QAM 12/18/23 12/18/23 History mcg (2,000 unit) tablet (Vitamin D3) ibuprofen 200 mg-diphenhydramine 1 cap PO HS 12/18/23 12/18/23 History HCl 25 mg capsule (Ibuprofen PM) omega 6-wow-smu-fish oil 1,000 mg 1 cap PO QAM 12/18/23 12/18/23 History (120 mg-180 mg) capsule (Fish Oil) simvastatin 40 mg tablet 40 mg PO QPM 12/18/23 12/18/23 History triamcinolone acetonide 0.1 % 1 applic topical BID PRN Rash 12/18/23 12/18/23 History topical cream turmeric root extract 500 mg 1,000 mg PO BID 12/18/23 12/18/23 History capsule Past Med/Surg History Problem List Right knee DJD Status post left partial knee replacement Medical History History of adverse reaction to anesthesia "When I had my last surgery (10/2023)- When I woke up I was groggy, low blood pressure, pulse was very low, low blood sugar, and trouble measuring my temperature - I thought it might have been shock." He notes surgery was planned for 7 am and delayed until 1 pm. GERD (gastroesophageal reflux disease) controlled, stable per pt Medial meniscus tear Left knee DJD Mitral valve regurgitation Stress echo 07/2023: Mild to moderate MR Prediabetes "borderline" Anxiety History of stress fracture (~2015) left foot Internal hemorrhoids Hx Hyperlipidemia Surgical History History of arthroplasty of left knee 10/17/2023 History of colonoscopy S/P tonsillectomy S/P arthroscopy of right knee Family History Brother Carotid artery stenosis Coronary arteriosclerosis Myocardial infarction Father Carotid artery stenosis Lung cancer Coronary arteriosclerosis Sister Hyperlipidemia Mother Stroke Denies family history of Ovarian cancer Prostate cancer Breast cancer Colorectal cancer Social History Smoking Status: Never smoker Second Hand Exposure: No; Do You Dip or Chew Tobacco: No; Hx Alcohol Use: Yes Alcohol type: beer and hard liquor Alcohol Intake Frequency: 2-3 x/Week Hx Substance Use: No Preferred Language: Ethiopian Communication Ability: Effective Visual Impairment: No Limitations Hearing Ability: Normal Locker Room Attendant Required: No Beliefs That Will Affect Care: None Current Living Situation: Spouse current occupational status: employed Feels Safe at Home: Yes Seatbelt Use: always Assistive Devices: Glasses Review of Systems All systems reviewed & are unremarkable except as noted in HPI & below. Physical Exam . Physical exam shows a pleasant middle-age male who looks in good health. Examination of the right knee reveals slight varus alignment to his knee. Got bony pressure medially. Small knee effusion. Range of motion 5-1 25. No ins tability. Gait ACL appears intact. Examination left knee with well-healed incision. Mild swelling. Range of motion 0-1 20 but good straight leg raise. Constitutional WD/WN, vitals as above Respiratory normal respiratory effort, lungs clear to auscultation Cardiovascular RRR, no murmur, no edema Gastrointestinal (Abdomen) normal bowel sounds, soft, nontender, no hepatosplenomegaly Results & Data Results & Data Laboratory Results . Diagnostic Findings . X-rays of the both knees were reviewed. X-ray of the right knee reveal advanced medial compartment arthritis. Is got complete loss of medial joint space. Got osteophytes medially. His lateral compartment was well-preserved. With stress testing lateral of the lateral part remains open. Medial side opens up. X-rays of the left knee reviewed. Shows a partial knee replacement. Components look in good position without problems. PG Care Time/CCT Total # of Minutes Spent Total Time Spent with Patient: Total time spent is greater than 50% in coordination of care (as documented) at patient's floor/unit and/or counseling patient: Coding Level of Care Code None Diagnoses Right knee DJD M17.11 Status post left partial knee replacement Z96.650
[~2024-01-17 08:27] MED LIST changes: +BUPIVACAINE 0.5 % 5 MG/1 ML PF 10ML VIAL ONE; +ROPIVACAINE 0.5% 5 MG/ML 30 ML VIAL ONE; -TRANEXAMIC ACID 1,000 MG **IV Pre-op IV SCH
--- NOTE | 2024-01-17 08:46 | History & Physical Bridge Note ---
Date of Service January 17, 2024 History & Physical Bridge Note I have examined the patient, reviewed the History & Physical and in the interval since the performance of the History & Physical I have noted the following changes of clinical significance: no changes noted
[2024-01-17] MEDS: LR 500ML BOLUS, THEN 15ML/HR IV SCH (09:05)
[2024-01-17] MEDS: LR 60ML/HR IV SCH (09:05)
[2024-01-17] MEDS: ACETAMINOPHEN 500 MG TAB PO SCH ×2 (09:06→14:40)
[2024-01-17] MEDS: dexAMETHasone**PF** 10 MG/ML VIAL ONE (09:06)
[2024-01-17] MEDS: FAMOTIDINE 20 MG TAB PO SCH (09:06)
[2024-01-17] MEDS: METOCLOPRAMIDE HCL 10 MG TABLET PO SCH (09:07)
[2024-01-17] MEDS: CeleBREX 200 MG CAP PO SCH (09:07)
[2024-01-17] MEDS: DEXAMETHASONE SOD INJ 4 MG/ML VIAL IV STA (09:07)
[2024-01-17] MEDS ORDERED: MIDAZOLAM HCL 1 MG/ML 2ML VIAL ONE ×2 (10:06→10:29)
[2024-01-17] MEDS ORDERED: fentaNYL citrate PF 100 MCG/2 ML VIAL ONE (10:06)
[2024-01-17] MEDS ORDERED: ONDANSETRON INJ 2 MG/ML 2 ML VIAL ONE (10:07)
[2024-01-17] MEDS ORDERED: PROPOFOL IV EMULSION 10 MG/ML 20 ML VIAL IV ONE ×2 (10:07→12:31)
[2024-01-17] MEDS ORDERED: LIDOCAINE 2% 2 ML VIAL/AMP(20MG/ML) INFIL ONE (10:07)
[2024-01-17] MEDS: ceFAZolin 2000MG 2,000 MG/15 ML SYR IV SCH ×2 (11:02→18:16)
[2024-01-17] MEDS: ROPIV 0.5% 246mg, Ketorolac 30mg, EPINEPHrine 0.5mg in NSS INFIL SCH (11:38)
[2024-01-17] MEDS: ORTHO JOINT ANESTHETIC ONE (11:38)
[2024-01-17] MEDS: TRANEXAMIC ACID 1,000 MG **IV Intra-op IV SCH (12:03)
--- NOTE | 2024-01-17 12:56 | Operative Report ---
PG Post Operative Report Pre & Post Diagnosis Operation Date: 01/17/24 10:30 Pre-Op Diagnosis: Right Knee Medial Compartment Degenerative Joint Disease Post-Op Diagnosis: Right Knee Medial Compartment Degenerative Joint Disease I identified the patient and participated in the time-out.: Yes Procedure Operation Date: 01/17/24 10:30 Actual Procedures p Right Unicompartmental Knee Arthroplasty(Right) - Kenneth Rodriguez MD Surgeon Kenneth Rodriguez MD Internal Sales Engineer Osmin Vincent PA-C Estimated Blood Loss 25 Findings Consistent with Post-Op Diagnosis Operative findings revealed grade 4 medial compartment arthritis. The lateral compartment was well-preserved. He had some fairly mild changes to the trochlea. Small knee joint effusion. Specimens Right knee sent for pathology. Anesthesia Type Spinal MAC Complications none Disposition Accompanied Patient To Recovery: No Indications Patient is 63-year-old fairly active gentleman whose had a several year history of increasing bilateral knee pain discomfort describes gotten worse over time. Failed conservative measures. He had a left partial knee replacement 3 months ago and is recovered from this and done well. He continues to bothered by right knee pain. They elect proceed with right partial knee replacement. Description of Procedure Operative implants consists of: 1. Biomet [place] size medium femoral component. 2. Biomet [place] right medial size D tibial tray. 3. 4 mm mobile-bearing polyethylene insert. The patient was taken the op room, identified, and placed on the operating table in the supine position. All contact areas were appropriately padded. IV antibiotics fibra anesthesia team. A spinal anesthetic and adductor canal block had provided holding area. Right Tetrick was then placed. The right lower extremity was then prepped and draped in usual sterile fashion. The right leg was elevated exsanguinated with use of an Esmarch and a turn was placed at 300 mmHg. An anterior approach of the right knee was then performed to a longitudinal incision beginning at the superior aspect the patella and extending just medial to the tibial tubercle. Sharp dissection was carried out through subcutaneous tissue down the extensor mechanism. A medial parapatellar arthrotomy incision was made. Some of the fat pads were removed. I examined the knee. The ACL was intact. The lateral compartment was well-preserved. There is some fairly mild changes of the trochlea. We elected proceed with a partial knee replacement. The osteophytes were removed from the intercondylar notch area. The femur was sized to a size medium. The medium spoon was placed. The tibial alignment jig was then placed and adjusted and attached to the spoon with the 4G clamp. The proximal tibial cutting guide was pinned in place. The proximal tibia was cut. Tibia sized to a size D. Attention drawn the femur. Distal femur 0 with a sharp drill. The intramedullary terrell was placed. A medium femoral component was placed and attached to the IM terrell. The holes were drilled for the femoral component. The posterior cutting guide was placed and posterior cut was made. The 0 spigot was used in the distal femur is milled. The medial meniscus was excised. We trialed the knee and the 4 feeler gauge fit well in flexion and the 1 in extension. We used the 3 spigot and then milled the femur again. We can retrial the knee and the 4 implant fit appropriately. We elected to place these implants. All trial implants were removed. The posterior osteophyte cutting guide was placed and a posterior osteophyte was removed. The anterior leaf area was milled. The trial femoral component was placed. The tibial tray was pinned in place. The toothbrush blade was used to create the keel for the tibial tray. The knee was then trialed 1 more time and the 4 insert fit appropriately. Attention drawn to place the permanent implants. All trial implants were removed. A single batch [place] G cement was mixed. A right medial size D tibial tray was cemented in place followed by a medium femoral component. The all extraneous cement was removed. The 4 feeler gauge was placed until the cement hardened. Final cement check was then performed. We trialed the knee 1 more time and the 4 insert fit appropriately. The permanent for insert was placed. We then injected locally with 100 cc of Ortho mix. I did use the Betadine soak as well. The knee was once again irrigated. The tourniquet was then let down for turn time 65 minutes. Hemostasis surgeries electrocautery. The wounds once again irrigated. Extensor Meclomen closed with #1 Vicryl suture in a [id number] fashion. Extensor [place]cl[place] checked found to be intact the subcutaneous tissue then closed with 2 Dexon suture in buried interrupted fashion skin was closed skin mathew. Legs then cleaned and dried and sterile dressing with Xeroform, 4 fours, sterile cast padding, Jacob bandage were applied. The patient then transferred to the recovery in stable condition. Patient tolerated the procedure well and there were no complications. Osmin Vincent, my physician environmental services assistant, was present for the entire procedure. His assistance was essential and required for appropriate patient positioning, prepping and draping, surgical exposure, performing the technical details of the operation, placement the implants, closure of the wound, and placement of the sterile bandage. I attest to the content of the Intraoperative Record and any orders documented therein. Any exceptions are noted below.
--- NOTE | 2024-01-17 13:34 | XRay Report ---
XR knee RT 1 or 2V routine HISTORY: 63 years-old Male Surgical Post Op hemiarthroplasty of the right knee COMPARISON: 12/01/2023 TECHNIQUE: 2 views of the right knee FINDINGS: Medial compartment hemiarthroplasty with overlying skin mathew, expected postoperative soft tissue s welling and deep tissue air. No acute fracture or unexpected opaque foreign body. IMPRESSION: Unremarkable appearance of the right knee medial compartment hemiarthroplasty. ACT 112: Negative or not required by law. The above report was generated using voice recognition software. It may contain grammatical, syntax o r spelling errors. Electronically signed by: Ashok Ceja M.D. 01/17/2024 1:33 PM
[2024-01-17] MEDS ORDERED: PANTOprazole 40 MG TAB PO PRN (14:23)
[2024-01-17] MEDS ORDERED: ALUMINUM/MAGNESIUM SUSP 30 ML UDC PO PRN (14:23)
[2024-01-17] MEDS ORDERED: METOCLOPRAMIDE HCL INJ 5 MG/ML 2 ML VIAL IV PRN (14:23)
[2024-01-17] MEDS ORDERED: TRIAMCINOLONE ACET 0.1% CR 15 GM TUBE TOP PRN (14:23)
[2024-01-17] MEDS ORDERED: ONDANSETRON INJ 2 MG/ML 2 ML VIAL IV PRN (14:23)
[2024-01-17] MEDS ORDERED: bisacodyL 10 MG SUPP PR PRN (14:23)
[2024-01-17] MEDS ORDERED: MAGNESIUM HYDROXIDE SUSP 30 ML UDC PO PRN (14:23)
[2024-01-17] MEDS ORDERED: NON-FORMULARY MEDICATION (Zinc 30 MG) PO SCH (14:23)
[2024-01-17] MEDS ORDERED: NALOXONE HCL 0.4 MG/1 ML VIAL/CARP IV PRN (14:23)
[2024-01-17] MEDS ORDERED: HYDROmorphone INJ 0.5 MG/0.5 ML SYR IV PRN (14:23)
[2024-01-17] MEDS: SODIUM CHLORIDE 0.9% 1,000 ML IV SCH (14:41)
--- NOTE | 2024-01-17 15:07 | Anesthesiology Progress Note ---
Date of Service January 17, 2024 Anesthesia Post Procedure Vital Signs Vital Signs: Temp Pulse Pulse Resp BP Pulse Ox O2 Del Method 01/17/24 14:53 36.4 C L 55 L 16 122/73 95 Room Air 01/17/24 14:28 Room Air 01/17/24 14:23 36.3 C L 58 L 16 123/76 95 Room Air 01/17/24 14:05 54 L 13 122/58 L 93 Room Air 01/17/24 13:50 54 L 12 114/58 L 94 Room Air 01/17/24 13:40 36.5 C 55 L 12 124/66 96 Room Air 01/17/24 13:30 55 L 13 118/64 94 Room Air 01/17/24 13:20 53 L 15 114/65 95 Room Air 01/17/24 13:10 59 L 14 121/64 95 Room Air 01/17/24 13:00 66 16 115/66 93 Room Air 01/17/24 12:52 36.1 C L 68 16 110/69 96 Room Air 01/17/24 08:53 36.6 C 57 L 20 158/89 H 96 Room Air Transfer of Care Handoff Completed per policy Notes Mental Status: alert / awake / arousable and participated in evaluation Nausea / Vomiting: adequately controlled Pain: adequately controlled Airway Patency, RR, SpO2: stable & adequate BP & HR: stable & adequate Hydration State: stable & adequate Neuraxial Anesthesia: was administered and sensory block is resolving Anesthetic Complications: no major complications apparent and Pt Satisfied with anesthetic care
[2024-01-17] MEDS: ASCORBIC ACID 500 MG TAB PO SCH (15:12)
[2024-01-17] MEDS: DOCUSATE SODIUM 100 MG CAP PO SCH (20:59)
[2024-01-17] MEDS: SENNA 8.6 MG TAB PO SCH (20:59)
[2024-01-17] MEDS: KETOROLAC 30 MG/ML VIAL IV SCH (20:59)
[2024-01-17] MEDS: ASPIRIN 81 MG ECTAB PO SCH (20:59)
[2024-01-17] MEDS: SIMVASTATIN 40 MG TAB PO SCH (20:59)
[2024-01-17] MEDS ORDERED: ASPIRIN 81 MG ECTAB PO SCH (21:00)
[2024-01-17] MEDS ORDERED: NON-FORMULARY MEDICATION (Glucos Sul 2kcl-Msm-Chond-C-Mn [Glucosamine Chondroitin] 550-30- PO SCH (21:00)
[2024-01-17] MEDS ORDERED: SENNA 8.6 MG TAB PO SCH (21:00)
[2024-01-18] MEDS: oxyCODONE HCL IR 5 MG TAB (IMMEDIATE RELEASE) PO PRN (00:40)
[2024-01-18 04:38] VITALS: PULSE 67
--- NOTE | 2024-01-18 06:59 | Orthopedic Progress Note ---
Date of Service January 18, 2024 Assessment & Plan (1) Status post right partial knee replacement: Plan: 63-year-old gentleman postop day 1 from right partial knee replacement and 3 months out from his left side. He is doing well. Pains controlled. He is neur ologically intact. Plan: 1. DVT prophylaxis including thigh-high teds, SCDs, aspirin twice a day. 2. PT/OT. Weight-bear as tolerated right total knee protocol. 3. Pain control doing okay with current pain regimen. 4. Disposition. Plan to discharge to home with some home health after therapy today. (2) Status post left partial knee replacement: Admission and Anticipated Discharge Date Admission Date: January 17, 2024 Subjective 63-year-old gentleman postop day 1 from a right partial knee replacement. He is doing pretty well. Pain is controlled. Had a reasonable night. No chest pain or shortness of breath. Not feeling dizzy or lightheaded. Physical Exam Physical Exam: Physical exam shows a pleasant middle-age male. He is lying bed looks pretty comfortable. Examination of the right leg reveals the leg to be well aligned. Dressings clean dry and intact. He can dorsiflex and plantarflex his foot appropriately. He can do a good straight leg raise. Respiratory: normal respiratory effort, lungs clear to auscultation Cardiovascular: RRR, no murmur, no edema Gastrointestinal (Abdomen): normal bowel sounds, soft, nontender, no hepatosplenomegaly Results & Data Vital Signs (Past 12 Hours) Vital Signs Temp Pulse Pulse Resp BP Pulse Ox O2 Del Method 01/18/24 03:30 36.6 C 67 16 126/68 95 Room Air 01/17/24 19:10 36.7 C 74 16 123/62 94 Room Air
[2024-01-18 08:22] VITALS: BP 137/67; RESP 18; TEMP 97.5; O2SAT 98
[2024-01-18] MEDS ORDERED: MECOBALAMIN 500 MCG PO SCH (09:00)
[2024-01-18] MEDS: dexAMETHasone 10 MG in SYRINGE 0 ML IV SCH (09:44)
[2024-01-18] MEDS: CHOLECALCIFEROL 25 MCG (1000 UNITS) TAB PO SCH (09:45)
[2024-01-18] MEDS: TAMSULOSIN HCL 0.4 MG CAP PO SCH (09:45)
[2024-01-18] MEDS: OMEGA-3 (PURIFIED FISH OIL) 1 GM CAP PO SCH (09:45)
[2024-01-18] MEDS: MULTIVITAMIN TAB PO SCH (09:45)
--- NOTE | 2024-01-22 09:17 | Discharge Summary ---
Date of Service January 22, 2024 Admission HPI (Per Admitting) . Patient is a 63-year-old gentleman now about 3 months out from a left partial knee replacement. The left knee is doing pretty well. He continues to bothered by right knee pain. Very similar. Still medial sided pain. He limps more on the right side and it is limiting him. He has been through conservative care with minimal recent relief. Happy with the left knee would like to proceed with right partial knee replacement if possible. Admission Exam (Per Admitting) . Physical exam shows a pleasant middle-age male who looks in good health. Examination of the right knee reveals slight varus alignment to his knee. Got bony pressure medially. Small knee effusion. Range of motion 5-1 25. No instability. Gait ACL appears intact. Examination left knee with well-healed incision. Mild swelling. Range of motion 0-1 20 but good straight leg raise. Principal Diagnosis Same as "Discharge Diagnosis" noted below under Discharge Instructions. Discharge Data Procedures Performed Operation Date: 01/17/24 10:30 Actual Procedures p Right Unicompartmental Knee Arthroplasty(Right) - Kenneth Rodriguez MD Ordered Studies 01/17/24 05:00 US - OR guided needle placemen Routine Hospital Course (1) Status post right partial knee replacement: This is a 63 year old patient admitted on 01/17/24 and underwent partial knee replacement. He tolerated the procedure well and there were no complications. Transferred to the PACU post op and later to the orthopedic floor for further care. He was given ancef for antibiotic prophylaxis. He was also given JODY stockings, SCDs, and aspirin for DVT prophylaxis. Hemoglobin, hematocrit, and vital signs were monitored during his hospital stay and remained stable. Did not require any blood transfusions. There were no complications during his hospital stay. By post op day #1 the patient was tolerating a regular diet, pain was reasonably controlled with oral pain medicine, and he was participating in physical therapy. On post op day #1 the patient was discharged home and set up with home health care. He was given printed discharge instructions including prescriptions for extra strength tylenol, aspirin, ketorolac, zofran, oxycodone, and senokot. Continue physical therapy, weight bearing as tolerated. Continue JODY stockings. Follow up approximately 2 weeks post op or sooner if there are problems or concerns. PG Care Time/CCT Total # of Minutes Spent Total Time Spent with Patient: Total time spent is greater than 50% in coordination of care (as documented) at patient's floor/unit and/or counseling patient: Discharge Plan Discharge Items Patient Disposition: Home - Home Health Services Reason For Visit: RIGHT PARTIAL KNEE REPLACEMENT Discharge Diagnosis: Right Partial Knee REplacement Activity: Per Instructions section Weightbearing: Full weightbearing Non-emergency contact: Surgeon Call non-emergency contact if: you have any medication questions Follow-up/Referrals: Steven Santiago MD [Primary Care Provider] - Diet: Regular Addtl Attending Provider Instructions: ACTIVITY RECOMMENDATIONS: Diet: * You may resume previous diet. Physical Therapy: * You will go to physical therapy three times each week for four to six weeks after your surgery in order to regain your knee range of motion and to retrain your knee to work properly. * It is just as important to make sure you are getting your knee perfectly straight as it is to regain your knee bend. * Taking a pain pill an hour before therapy can help you have a more productive and comfortable therapy session. Home Exercise: * You were shown a series of exercises (heel props, heel slides, etc.) in the hospital. Do these exercises three to four times each day including the exercises you were shown in physical therapy. Walking: * Get up and walk several times each day. For the first four weeks, try not to stand or walk for more than one hour at a time. If you do stand or walk for more than one hour, you will not hurt anything, but your knee and leg will likely swell. * As you feel comfortable, you may change from the walker or crutches to a cane and then to independent walking. MEDICATIONS: New Medicine: * You will likely be taking one or more of these medications: 1. Oxycodone - A quick and shorter-acting pain medication. Take one to two tablets every six hours to lessen your pain. 2. Aspirin - Thins your blood to lessen the chance of forming a blood clot. * The most common side effects of pain medicine and iron are nausea and constipation. If nausea or constipation is too much of a problem or if you have any questions about your new medicines or doses, call [facility] at . We will try to help you manage these issues. "VERY IMPORTANT TO READ AND REVIEW" Pain: * The immediate post-operative period after knee replacement surgery is often quite painful. * You are given a prescription for pain medicine. You should take it, as directed, when you need it, especially before physical therapy and before going to bed. Pain that interferes with sleep is very common and can last several months. * You will likely need pain medicine for the first four to six weeks. It will not stop all of the pain. The pain will lessen and as you feel better, you may change to milder pain medicine such as Tylenol. * The most common side effects of pain medicine are nausea and constipation, so don't take more than you need. SPECIAL CARE INSTRUCTIONS: TEDs/Elastic Stockings: * The white elastic stockings help limit swelling and prevent blood clots from forming in your legs. The more you wear them, the more they work. * Wear them for six weeks after knee replacement surgery and four weeks after partial knee replacement. Incision Site Care: * Remove dressing postoperative day 2 and then shower. Keep direct shower pressure off the incision site. * After showering, cover mathew with dry gauze and change daily or more frequently if the dressing is getting saturated with drainage. * Use the JODY stockings to hold dressing in place. DO NOT apply tape on the skin. * May completely stop using bandage if wound is dry and no drainage * [place] are removed between 2 and 3 weeks post-op. If your follow-up appointment is made before 2 weeks, please have your appointment re- scheduled. It is too early to remove the mathew. Prevention of Infection: * Take antibiotics one hour before any dental cleaning, dental work, urological procedure, gastrointestinal procedure or any invasive surgery in order to prevent your new joint from getting infected. * You may get the antibiotics from the doctor performing the procedure or you may call our office at [phone] before and we will call in a prescription to the pharmacy of your choice. Things to Watch For: * Drainage from the incision site that occurs more than one week after your surgery. * Severely increased knee/leg pain or swelling. * Increased redness at the incision site. * Fever above 102 degrees Fahrenheit. * Unusual chest pain or shortness of breath. * Unusual pain or burning with urination. Call [facility] at [phone] with any of the above problems or if you have any questions about your medicines or recovery. FOLLOW UP VISIT: Make an appointment to see your doctor for approximately two weeks after surgery for a progress check and staple removal by calling the office at [phone]. Pending Studies at Discharge: No Stand-Alone Forms: [facility] Medications and DC Order Prescriptions: Continued (DME) [facility] See Rx Instructions .MEDSUPPLY Qty: 1 0RF Rx Instructions: As directed aspirin [Campbell Low Dose Aspirin] 81 mg tablet,delayed release (DR/EC) 81 mg PO BID 45 Days Qty: 90 0RF Rx Instructions: Take to prevent blood clots. oxycodone 5 mg tablet 5 - 10 mg PO Q6 PRN (Reason: pain) Qty: 40 0RF Rx Instructions: Take as needed for pain ondansetron 4 mg tablet,disintegrating 4 mg PO Q8 PRN (Reason: nausea) Qty: 20 1RF Rx Instructions: Take as needed for nausea ketorolac 10 mg tablet 10 mg PO Q6 5 Days Qty: 20 0RF Rx Instructions: Take 4 times per day with food for 5 days to lessen pain and swelling. sennosides [Senokot] 8.6 mg tablet 8.6 mg PO BID 14 Days Qty: 28 0RF Rx Instructions: Take two times a day to prevent/treat constipation acetaminophen [Tylenol Extra Strength] 500 mg tablet 1,000 mg PO TID 30 Days Qty: 180 0RF Rx Instructions: Take 3 times per day to lessen pain. aspirin [Campbell Low Dose Aspirin] 81 mg tablet,delayed release (DR/EC) 81 mg PO BID 45 Days Qty: 90 0RF Rx Instructions: Take to prevent blood clots. tamsulosin [Flomax] 0.4 mg capsule 0.4 mg PO DAILY Qty: 7 0RF Rx Instructions: Begin night BEFORE surgery to prevent urinary retention (DME) [facility] See Rx Instructions .MEDSUPPLY Qty: 1 0RF Rx Instructions: As directed pantoprazole 40 mg tablet,delayed release (DR/EC) 40 mg PO Q2D PRN (Reason: Acid Reflux) mecobalamin (vitamin B12) 500 mcg tablet,chewable 500 mcg PO QAM hydrocortisone [Anusol-HC] 2.5 % cream with perineal applicator 1 applic NC DAILY PRN (Reason: hemorrhoids) Qty: 30 3RF Glucosamine Chondroitin 550-30-1 mg Capsule 1 cap PO BID ascorbic acid (vitamin C) [Vitamin C] 500 mg Tablet 500 mg PO Q2D cholecalciferol (vitamin D3) [Vitamin D3] 50 mcg (2,000 unit) Tablet 50 mcg PO QAM omega [id number] oil [Fish Oil] 1,000 mg (120 mg-180 mg) Capsule 1 cap PO QAM Zinc 30 mg PO Q2D triamcinolone acetonide [Triderm] 0.1 % cream 1 applic topical BID PRN (Reason: Rash) simvastatin 40 mg tablet 40 mg PO QPM turmeric root extract 500 mg capsule 1,000 mg PO BID Discontinued Ibuprofen PM 200-25 mg Capsule 1 cap PO HS acetaminophen [Tylenol Extra Strength] 500 mg tablet 1,000 mg PO TID PRN (Reason: Pain) Rx Instructions: Take 3 times per day to lessen pain. Admission Data Admit Date/Time: 01/17/24 12:48 Attending Provider: Kenneth Rodriguez Admit Provider: Kenneth Rodriguez Primary Care Provider: Steven Santiago Other Providers: [facility] Other Interventions: Discharge Summary Assessment (RN) Last Done: 01/18/24 10:54
== END 2024-01-18 12:01 | disposition home health service (06) ==
LOC: 3N 08:27 → ASU 08:27